=== PATIENT | male | born 1970 | race Caucasian/White ===

== ENCOUNTER 2020-01-24 10:52 | Outpatient (REF) | payer SELFPAY | END 2020-01-24 10:53 | disposition home or self-care (01) | LOC: HO.BBR 10:52 | PROVIDERS: Visit Provider Internal Medicine Gastroenterology | DX: E83.110 Hereditary hemochromatosis (principal) | CPT/HCPCS: 99195 ==

== ENCOUNTER 2020-04-29 12:55 | Outpatient (REF) | payer SELFPAY | END 2020-04-29 12:56 | disposition home or self-care (01) | LOC: HO.BBR 12:55 | PROVIDERS: Visit Provider Internal Medicine Gastroenterology | DX: Z13.89 Encounter for screening for other disorder (principal) ==

== ENCOUNTER 2020-04-29 13:37 | Outpatient (REF) | payer SELFPAY ==
[2020-04-29 14:32] LABS: Cholesterol 214 mg/dL
== END 2020-04-29 13:38 | disposition home or self-care (01) ==
LOC: HO.LNC 13:37
PROVIDERS: Visit Provider Pathology Anatomic Pathology & Clinical Pathology
DX: Z13.89 Encounter for screening for other disorder (principal)
CPT/HCPCS: 36415; 82465

== ENCOUNTER 2020-06-29 12:46 | Outpatient (REF) | payer OTHER, SELFPAY | END 2020-06-29 12:47 | disposition home or self-care (01) | LOC: HO.BBR 12:46 | PROVIDERS: Visit Provider Internal Medicine Gastroenterology | DX: Z13.89 Encounter for screening for other disorder (principal) ==

== ENCOUNTER 2020-09-04 11:03 | Outpatient (REF) | payer OTHER, SELFPAY | END 2020-09-04 11:04 | disposition home or self-care (01) | LOC: HO.BBR 11:03 | PROVIDERS: Visit Provider Internal Medicine Gastroenterology | DX: Z13.89 Encounter for screening for other disorder (principal) ==

== ENCOUNTER 2020-11-06 10:50 | Outpatient (REF) | payer OTHER, SELFPAY | END 2020-11-06 10:51 | disposition home or self-care (01) | LOC: HO.BBR 10:50 | PROVIDERS: PCP Internal Medicine; Visit Provider Internal Medicine Gastroenterology | DX: Z13.89 Encounter for screening for other disorder (principal) ==

== ENCOUNTER 2020-12-01 12:12 | Outpatient (REF) | payer OTHER, SELFPAY | END 2020-12-01 12:13 | disposition home or self-care (01) | LOC: HO.BBR 12:12 | PROVIDERS: Visit Provider Internal Medicine Gastroenterology | DX: Z13.89 Encounter for screening for other disorder (principal) ==

== ENCOUNTER 2021-01-08 09:52 | Outpatient (REF) | payer OTHER, SELFPAY | END 2021-01-08 09:53 | disposition home or self-care (01) | LOC: HO.BBR 09:52 | PROVIDERS: PCP Internal Medicine; Visit Provider Internal Medicine Gastroenterology | DX: Z13.89 Encounter for screening for other disorder (principal) ==

== ENCOUNTER 2021-03-09 09:39 | Outpatient (REF) | payer OTHER, SELFPAY | END 2021-03-09 09:40 | disposition home or self-care (01) | LOC: HO.BBR 09:39 | PROVIDERS: PCP Internal Medicine; Visit Provider Internal Medicine Gastroenterology | DX: Z13.89 Encounter for screening for other disorder (principal) ==

== ENCOUNTER 2021-05-07 10:58 | Outpatient (REF) | payer OTHER, SELFPAY | END 2021-05-07 10:59 | disposition home or self-care (01) | LOC: HO.BBR 10:58 | PROVIDERS: Visit Provider Internal Medicine Gastroenterology | DX: Z13.89 Encounter for screening for other disorder (principal) ==

== ENCOUNTER 2021-07-07 08:54 | Outpatient (REF) | payer OTHER, SELFPAY | END 2021-07-07 08:55 | disposition home or self-care (01) | LOC: HO.BBR 08:54 | PROVIDERS: Visit Provider Internal Medicine Gastroenterology | DX: Z13.89 Encounter for screening for other disorder (principal) ==

== ENCOUNTER 2021-09-03 10:50 | Outpatient (REF) | payer OTHER, SELFPAY | END 2021-09-03 10:51 | disposition home or self-care (01) | LOC: HO.BBR 10:50 | PROVIDERS: Visit Provider Internal Medicine Gastroenterology | DX: Z13.89 Encounter for screening for other disorder (principal) ==

== ENCOUNTER 2021-10-29 12:46 | Outpatient (REF) | payer OTHER, SELFPAY | END 2021-10-29 12:47 | disposition home or self-care (01) | LOC: HO.BBR 12:46 | PROVIDERS: Visit Provider Internal Medicine Gastroenterology | DX: Z13.89 Encounter for screening for other disorder (principal) ==

== ENCOUNTER 2021-12-27 12:49 | Outpatient (REF) | payer OTHER, SELFPAY | END 2021-12-27 12:50 | disposition home or self-care (01) | LOC: HO.BBR 12:49 | PROVIDERS: Visit Provider Internal Medicine Gastroenterology | DX: Z13.89 Encounter for screening for other disorder (principal) ==

== ENCOUNTER 2022-02-23 12:28 | Outpatient (REF) | payer OTHER, SELFPAY | END 2022-02-23 12:29 | disposition home or self-care (01) | LOC: HO.BBR 12:28 | PROVIDERS: Visit Provider Internal Medicine Gastroenterology | DX: Z13.89 Encounter for screening for other disorder (principal) ==

== ENCOUNTER 2022-04-27 10:23 | Outpatient (REF) | payer OTHER, SELFPAY | END 2022-04-27 10:24 | disposition home or self-care (01) | LOC: HO.BBR 10:23 | PROVIDERS: Visit Provider Internal Medicine Gastroenterology | DX: Z13.89 Encounter for screening for other disorder (principal) ==

== ENCOUNTER 2022-06-29 09:37 | Outpatient (REF) | payer OTHER, SELFPAY | END 2022-06-29 09:38 | disposition home or self-care (01) | LOC: HO.BBR 09:37 | PROVIDERS: Visit Provider Internal Medicine Gastroenterology | DX: Z13.89 Encounter for screening for other disorder (principal) ==

== ENCOUNTER 2022-08-25 09:45 | Outpatient (REF) | payer OTHER, SELFPAY | END 2022-08-25 09:46 | disposition home or self-care (01) | LOC: HO.BBR 09:45 | PROVIDERS: Visit Provider Internal Medicine Gastroenterology | DX: Z13.89 Encounter for screening for other disorder (principal) ==

== ENCOUNTER 2022-10-27 09:54 | Outpatient (REF) | payer OTHER, SELFPAY | END 2022-10-27 09:55 | disposition home or self-care (01) | LOC: HO.BBR 09:54 | PROVIDERS: Visit Provider Internal Medicine Gastroenterology | DX: Z13.89 Encounter for screening for other disorder (principal) ==

== ENCOUNTER 2022-12-23 12:27 | Outpatient (REF) | payer OTHER, SELFPAY | END 2022-12-23 12:28 | disposition home or self-care (01) | LOC: HO.BBR 12:27 | PROVIDERS: Visit Provider Internal Medicine Gastroenterology | DX: Z13.89 Encounter for screening for other disorder (principal) ==

== ENCOUNTER 2023-02-17 10:48 | Outpatient (REF) | payer OTHER, SELFPAY | END 2023-02-17 10:49 | disposition home or self-care (01) | LOC: HO.BBR 10:48 | PROVIDERS: Visit Provider Internal Medicine Gastroenterology | DX: Z13.89 Encounter for screening for other disorder (principal) ==

== ENCOUNTER 2023-04-21 08:54 | Outpatient (REF) | payer OTHER, SELFPAY | END 2023-04-21 08:55 | disposition home or self-care (01) | LOC: HO.BBR 08:54 | PROVIDERS: Visit Provider Internal Medicine Gastroenterology | DX: Z13.89 Encounter for screening for other disorder (principal) ==

== ENCOUNTER 2023-06-19 09:58 | Outpatient (REF) | payer OTHER, SELFPAY | END 2023-06-19 09:59 | disposition home or self-care (01) | LOC: HO.BBR 09:58 | PROVIDERS: Visit Provider Internal Medicine Gastroenterology | DX: Z13.89 Encounter for screening for other disorder (principal) ==

== ENCOUNTER 2023-08-14 08:08 | Outpatient (REF) | payer OTHER, SELFPAY | END 2023-08-14 08:09 | disposition home or self-care (01) | LOC: HO.BBR 08:08 | PROVIDERS: Visit Provider Internal Medicine Gastroenterology | DX: Z13.89 Encounter for screening for other disorder (principal) ==

== ENCOUNTER 2023-10-09 08:02 | Outpatient (REF) | payer OTHER, SELFPAY | END 2023-10-09 08:03 | disposition home or self-care (01) | LOC: HO.BBR 08:02 | PROVIDERS: Visit Provider Internal Medicine Gastroenterology | DX: Z13.89 Encounter for screening for other disorder (principal) ==

== ENCOUNTER 2023-12-08 12:42 | Outpatient (REF) | payer OTHER, SELFPAY | END 2023-12-08 12:43 | disposition home or self-care (01) | LOC: HO.BBR 12:42 | PROVIDERS: Visit Provider Internal Medicine Gastroenterology | DX: Z13.89 Encounter for screening for other disorder (principal) ==

== ENCOUNTER 2024-03-22 08:46 | Outpatient (REF) | payer OTHER, SELFPAY | END 2024-03-22 08:47 | disposition home or self-care (01) | LOC: HO.BBR 08:46 | PROVIDERS: PCP Internal Medicine; Visit Provider Internal Medicine Gastroenterology | DX: Z13.89 Encounter for screening for other disorder (principal) ==

== ENCOUNTER 2024-07-12 08:50 | Outpatient (REF) | payer OTHER, SELFPAY | END 2024-07-12 08:51 | disposition home or self-care (01) | LOC: HO.BBR 08:50 | PROVIDERS: PCP Internal Medicine; Visit Provider Internal Medicine Gastroenterology | DX: Z13.89 Encounter for screening for other disorder (principal) ==

== ENCOUNTER 2024-11-15 08:43 | Outpatient (REF) | payer OTHER, SELFPAY ==
--- OUTSIDE RECORDS SUMMARY | 2024-06-19 04:30 | XMS_ITS | Encounter Summary ---
Author Name [facility] [place] Organization [facility] [place] Address [address] [place] [id number] Care Team Providers Care Acoustical Carpenter Name Role Phone GENA CARDOZA Primary Care Provider Unavail able Insurance Providers: All historical and current Section Date Range: From patient's date of to the date document was created. This section includes the names of all active insurance providers for the patient. Insurance Provider Type of Coverage Plan Name Start of Policy Coverage End of Policy Coverage Group Number Member ID Insurance Provider's Telephone Number Policy Winchester's Name Patient's Relationship to Policy Winchester CAREMARK PRESCRIPT ION DEBORA DIALLO PILGR IM Oct 15, 2022 [id number] ESRGIO ,JOHN PATIENT [employer]ARK PRESCRIPT ION GIC Oct 15, 2022 [id number] SERGIO ,JOHN PATIENT [employer] PRESCRIPT ION RX Oct 15, 2022 [id number] [phone] CAROLANN HARTMAN PATIENT [facility] PREFERRED PROVIDER ORGANIZAT ION (PPO) DEBORA DIALLO PILGR IM Oct 15, 2022 [id number] CAROLANN HARTMAN [facility] POINT OF SERVICE MA POS Oct 15, 2022 01 [id number] [phone] SERGIOCAROLANN PATIENT [employer] [facility] PRESCRIPT ION HP Oct 15, 2022 NONE [id number] CAROLANN HARTMAN PATIENT [employer] [facility] PRESCRIPT ION DEBORA DIALLO PILGR IM Oct 15, 2022 NONE [id number] CAROLANN HARTMAN PATIENT [employer] PRESCRIPT ION DEBORA DIALLO PILGR IM* Oct 15, 2022 NONE [id number] CAROLANN HARTMAN PATIENT [facility] PREFERRED PROVIDER ORGANIZAT ION (PPO) DEBORA DIALLO PILGR IM Oct 15, 2022 [id number] [phone] CAROLANN HARTMAN PATIENT Selected Encounter This section includes the information on record at CT for the Encounter. Date/Time Encounter Type Encounter Description Reason Provider Source Jun 19, 2024 08:30 AM OT EVAL LOW COMPLEX 30 MIN OCCUPATIONAL THERAPY ICD-10-CM M79.643 Pain in unspecified hand MAXIME CLARK Fritz Encounter Template Text not used by CT Assessments - Encounter Diagnoses This section includes the primary and secondary diagnoses documented for the Encounter. Date/Time Primary/Secondary Diagnosis Diagnosis Name Provider Source Jul 03, 2024 02:12 PM PRIMARY Pain in unspecified hand KORY CLARKE Fritz [facility] Plan of Treatment: Future Appointments (+ 6 months) and Future Tests (+/- 45 days) The Plan of Treatment section includes future care activities for the patient from all CT treatmentfacilities. This section includes future appointments and future orders which are active, pending or scheduled. Future Appointments This section includes appointments that were scheduled to occur 6 months from the date of the Encounter, up to a maximum of 20 appointments. The data comes from all CT treatment facilities. Appointment Date/Time Appointment Type Appointme nt Facility Name September 11, 2024 08:15 AM [facility] September 13, 2024 09:00 AM AMBULATORY - MEDICINE [facility] Social History: Smoking Status (Most current) and Tobacco Use (All prior to encounter date) This section includes the most current, and the historical, smoking and tobacco- related health factors from the [facility] facility where the [facility]counter took place. Current Smoking Status This section includes the most current smoking, or tobacco-related health factor, from the [facility] facility where the Encounter took place. Date/Time Current Smoking Status Comment Ursula magallanes Mar 07, 2023 10:15 AM VA-TOBACCO NEVER USED [facility] Encounter Notes: All associated encounter notes This section contains the clinical notes associated to the Encounter. Date/Time Encounter Note(s) Provider Source Jun 19, 2024 07:10 AM OCCUPATIONAL MEDIC INE CONSULT: LOCAL TITLE: CONSULT REPORT/OCCUPATIONAL THERAPY STANDARD TITLE: OCCUPATIONAL MEDICINE CONSULT DATE OF NOTE: JUN 19, 2024@07:10 ENTRY DATE: JUN 19, 2024@07:10:40 AUTHOR: MAXIME CLARK COSIGNER: JARRETT DUNBAR URGENCY: STATUS: COMPLETED Initial Evaluation date: Jun Progress Note Date: Treatment #: eval Treatment time: 30 minutes Diagnosis: Pain in unspecified Hand(ICD-10-CM M79.643) Provider: Kevon OT Treatment Precautions: n/a Patient identified by full name and date of * S: Mr. Hartman is a 54 y/o 60% SC male who was referred to OT for b/l hand pain and splinting. He was seen in the OT clinic on 06/19/2024. PMH: Active problems - Computerized Problem List is the source for the followin. History of colonoscopy 2. Exposure to potentially hazardous substance 3. Hyperlipidemia (SCT 88042787) 4. Hyperglycaemia 5. Pain in fingers of both hands 6. Pain in both hip joints 7. LBP - Low back pain 8. Disorder of lipid and lipoprotein metabolism 9. Allergic rhinitis 10. Benign essential hypertension 11. Hemochromatosis 12. Sleep apnea 13. Plantar fasciitis 14. Knee pain VASILIY: pt reports that when he wakes at night his wrists are super sore. he thinks it may be the way he sleeps on it. also a h/o a ganglion cyst on the dorsal R wrist. he feels his hands are weak and notices he's dropping things more. he started the splinting in May of last year. this past weekend he forgot to bring his splints on a trip and was woke multiple times w/ wrist pain and numbness/tingling. had to shake his hands out to resolve. pt brings in paperwork from [employer] from May of 2023 recommending nocturnal splinting. pt's splints issued at that time are wearing out and he is interested in obtaining new ones. Imaging: none in cprs Pain Level: 0/10 at rest, increasing to 3-5/10 at worst Pain Location: throughout the wrist Aggravating Factors: night time, mowing the lawn Alleviating Factors: splinting, shaking it out O: Pt is R hand dominant. Works as a Mechanic'S Assistant. 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 Busy w/ kids currently, working out. Clinical Presentation: very slight thenar atrophy noted b/l Special Testing: Tinel's: (-) b/l Compression: (+) L only Reverse Phalen's: (+) b/l after 15 seconds Sales Office Coordinator Strength Per Dynamometer: measured in pounds per pressure (norms: age) [R] [L] 1. 81# (norm:100#) 87# (norm:95#) 2. 91# 89# 3. 93# 78# Prehension Strength (pinch meter/pounds per pressure) [R] [L] lat: 21# (norm: 27#) 20# (norm: 26#) 2 pt: 13# (norm: 18#) 13# (norm: 18#) 3 pt: 15# (norm: 24#) 16# (norm: 24#) Sensation: pt reports that he occasionally will wake w/ paresthesia's while wearing splints, but much less so than w/o wearing them. TX: *issued pt b/l LARGE wrist cock up splints. pt was able to don/doff I'ly and understands to only wear during sleep. *discussed next steps if his sx's begin to worsen; EMG/NCV, CSI and surgical intervention. provided pt w/ this insurance underwriter sales's contact information should he have any additional questions or concerns. *issued pt median nerve gliding and median nerve rocking in order to manage sx's. pt v/u and r/d. Access Code: [email or web address] URL: [email or web address] Date: 06/19/2024 Prepared by: [facility] Exercises - Median Nerve [place] - 1 x daily - 7 x weekly - 3 sets - 10 reps - Median Nerve Rocking - 1 x daily - 7 x weekly - 3 sets - 10 reps ASSESSMENT: Carolann is a 54 y/o male who presents to the OT clinic w/ s/s of b/l CTS as evidenced by pt report, clinical presentation and positive provocative testing. Sales Office Coordinator is WNL and pinch is reduced as compared to norms. Issued pt splints as well as median nerve TE in order to attempt to manage sx's. PLAN: No further f/u scheduled at this time. The pt was issued b/l wrist cock up splints for nocturnal use. Also issued a HEP to promote healthy nerve gliding. Pt understands to call should he have any questions or concerns, or be interested in additional referrals. Pt is in agreement w/ this POC. GOALS: 1. issue wrist splints as requested 2. pt will report improvement since implementing new splints * The practitioner's co-signature on this note signifies agreement with plan of care and clinical diagnosis code. /judy/ Maxime Clark MS OTR/Carmen, CHT Occupational Therapist Signed: 06/19/2024 13:57 /judy/ MICHAEL WHITE CERTIFIED NURSE PRACTITIONER Cosigned: 06/19/2024 14:03 MAXIME CLARK [facility] [place] [facility]
--- OUTSIDE RECORDS SUMMARY | 2024-11-15 08:55 | XMS_ITS | Clinical Summary ---
Author Organization [facility] [address] [facility] [address] Address [address] [place] [address] Phone Care Team Providers Care Reservations Specialist Name Role Phone Tomas Duncan Primary Care Provider Allergies No known active allergies Encounters Date Type Department Care Team Description 08/26/2024 Telephone Gastroenterology - [facility] [address] [phone] Allison Clarke, NATALI insurance referral from Last 3 Months Social History Tobacco Use Types Packs/Day Years Used Date Smoking Tobacco: Never Assessed Sex and Gender Information Value Date Recorded Sex Assigned at Not on file Legal Sex Male 11:08 AM EDT Gender Identity Not on file Sexual Orientation Not on file Last Filed Vital Signs Vital Sign Reading Time Taken Comments Blood Pressure - - Pulse - - Temperature - - Respiratory Rate - - Oxygen Saturation - - Inhaled Oxygen Concentration - - Weight 110 kg (242 lb) 06/03/2024 1:21 PM EST Height 185.4 cm (6' 1 ) 06/03/2024 1:21 PM EST Body Mass Index 31.93 06/03/2024 1:21 PM EST Plan of Treatment Health Maintenance Due Date Last Done Comments Hepatitis B Vaccines (1 of 3 - 19+ 3-dose series) 1989 Pneumococcal Vaccine: 50+ Years (1 of 1 - PCV) 2020 Cholesterol Screening (Lipid Panel) 11/17/2023 Colorectal Cancer Screening: Colonoscopy 11/17/2023 HIV Screening 11/17/2023 Hepatitis C Screening 11/17/2023 Social Influencers of Health Screening 11/17/2023 COVID-19 Vaccine ( season) 2023 08/15/2020, 07/16/2020 Depression Screening 04/17/2024 Hypertension/CHF/CAD Annual BMP Blood Test 06/03/2024 Influenza Vaccine (#1) 2024 5, 03/07/2023, 03/07/2022, Additional history exists DTaP,Tdap,and Td Vaccines (4 - Td or Tdap) 03/03/2030 03/03/2020, 10/12/2012, 02/07/2007 Zoster Vaccines Completed 06/15/2022, 03/07/2022 HIB Vaccines Aged Out No longer eligi ble based on patient's age to complete this topic HPV Vaccines Aged Out No longer eligi ble based on patient's age to complete this topic Hepatitis A Vaccines Aged Out No long er eligible based on patient's age to complete this topic IPV Vaccines Aged Out No longer eligi ble based on patient's age to complete this topic MMR Vaccines Aged Out No longer eligi ble based on patient's age to complete this topic Meningococcal ACWY Vaccine Aged Out N o longer eligible based on patient's age to complete this topic Meningococcal B Vaccine Aged Out No l onger eligible based on patient's age to complete this topic RSV Immunization Patients Under 20 months Aged Out No longer eligible based on patient's age to complete this topic Varicella Vaccines Aged Out No longer eligible based on patient's age to complete this topic Insurance [facility] [place] [id number] [facility] Care Teams Reservations Specialist Relationship Specialty Start Date End Date Tomas Duncan DO [address] [facility] [address] [place]LA Argu[place] [phone] PCP - General Internal Medicine 04/29/24
== END 2024-11-15 08:44 | disposition home or self-care (01) ==
LOC: HO.BBR 08:43
PROVIDERS: PCP Internal Medicine; Visit Provider Internal Medicine Gastroenterology
DX: Z13.89 Encounter for screening for other disorder (principal)